=== PATIENT | male | born 1980 | race Caucasian/White ===

== ENCOUNTER 2024-06-26 18:39 | Emergency (ER) | payer MEDICAID ==
[~2024-06-26] VITALS: Ht 165.1 cm; Wt 86.4 kg
[~2024-06-26 18:39] MED LIST: NOCURR
[2024-06-26] MEDS ORDERED: OXYC5TAB3 PO (18:46)
[2024-06-26] MEDS: KETOROLAC TROMETHAMINE 30 MG/ML VIAL IM ONE (19:18)
[2024-06-26] MEDS: OxyCODONE HCL 5 MG IR TABLET PO ONE (19:18)
[2024-06-26] MEDS: LIDOCAINE 5% TRANSDERMAL PATCH TD ONE (19:19)
[2024-06-26 19:43] VITALS: BP 135/89; PULSE 88; RESP 22; TEMP 98.3; O2SAT 99
== END 2024-06-26 22:40 | disposition home or self-care (01) ==
LOC: EMS 18:39
DX: S22.41XA Multiple fractures of ribs, right side, initial encounter for closed fracture (principal); F17.210 Nicotine dependence, cigarettes, uncomplicated; Z88.0 Allergy status to penicillin; Z88.6 Allergy status to analgesic agent; X58.XXXA Exposure to other specified factors, initial encounter; Y93.89 Activity, other specified; Y92.89 Other specified places as the place of occurrence of the external cause; Y99.8 Other external cause status
CPT/HCPCS: 99283; 71101; 96372; G0238; J1885